=== PATIENT | female | born 1965 | race Caucasian/White ===

== ENCOUNTER 2016-07-03 15:32 | Emergency (ER) | payer OTHER ==
[~2016-07-03] VITALS: Ht 152.4 cm; Wt 73.5 kg
[~2016-07-03 15:32] MED LIST: NO MEDS; TRAM50TA2 PO
[2016-07-03 16:11] VITALS: Ht 152.4 cm; Wt 73.5 kg
[2016-07-03] MEDS ORDERED: LORAZEPAM 0.5 MG TAB PO ONE (19:00)
--- NOTE | 2016-07-03 19:34 | RADRPT ---
PROCEDURE: XR left Shoulder. CLINICAL INDICATION: Left shoulder pain. TECHNIQUE: Two views of the left shoulder are available for review. COMPARISON: None available FINDINGS: No evidence for fracture, subluxation or dislocation. No evidence for bone destructive or erosive c hanges. The bones are well mineralized. There is calcification either within or immediately adjacen t to the AC joint. Findings are likely old post-traumatic change. The acromion is curved which can be seen with impingement and there is mild greater tuberosity enthesopathy. IMPRESSION: 1. There is a curved acromion and there is mild greater tuberosity enthesopathy. Findings could re present impingement. 2. No evidence for fracture. RPTAT: XX .Brandt Luciano MD, MD Date Time Electronically viewed and signed by .Brandt Luciano MD, on 07/03/2016 19:34 .T/
--- NOTE | 2016-07-03 19:46 | RADRPT ---
PROCEDURE: XR Chest. CLINICAL INDICATION: chest pain TECHNIQUE: Single frontal chest x-ray. COMPARISON: 02/19/2012 FINDINGS: There is minimal prominence of the lung interstitium likely minimal chronic changes. No focal opacif ication is seen. The cardiomediastinal silhouette is unremarkable. The osseous structures are unre markable. IMPRESSION: 1. There is no acute cardiopulmonary process. RPTAT: HJES .Juan Miguel Mcclure MD, MD Date Time Electronically viewed and signed by .Juan Miguel Mcclure MD, MD on 07/03/2016 19:46 .S/
[2016-07-03] MEDS ORDERED: IBUP-1542 PO (19:55)
--- NOTE | 2016-07-03 19:59 | ERD ---
ER Documentation Chief Complaint Date/Time DATE: 07/03/16 TIME: 19:56 Chief Complaint RIGHT UPPER ARM PAIN HPI This is a 51-year-old female presents to the ER with left arm pain that started yesterday. 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 Patient denies any trauma to the arm. Patient states that the pain radiates to her chest and she feels palpitations. Patient also complaining of chest pain. She denies any shortness of breath. She feels nauseous. She denies vomiting or diarrhea. Patient's chest pain is nonexertional. ROS 12 point review of systems was done, all negative except per HPI. Medications Home Meds Active Scripts Ibuprofen* (Ibuprofen*) 600 Mg Tablet, 600 MG PO Q6 for 3 Days, TAB Prov:JO ANN CANALES 07/03/16 Tramadol HCl (Tramadol HCl) 50 Mg Tablet, 50 MG PO Q4 Y for PAIN, #20 TAB Prov:AGATHA CARREON PA-C 05/21/15 Reported Medications [No Meds] No Conflict Check 09/11/10 Allergies Allergies: Coded Allergies: No Known Allergies (Verified Allergy, Mild, 12/20/12) PMhx/Soc History of Surgery: No Anesthesia Reaction: No Hx Neurological Disorder: No Hx Respiratory Disorders: No Hx Cardiac Disorders: No Hx Psychiatric Problems: No Hx Miscellaneous Medical Probl: Yes (UTERINE FIBROIDS) Hx Alcohol Use: No Hx Substance Use: No Hx Tobacco Use: No Physical Exam Vitals Vital Signs Date Time Temp Pulse Resp B/P Pulse Ox O2 Delivery O2 Flow Rate FiO2 07/03/16 16:11 98.5 109 18 159/72 98 Physical Exam GENERAL: The patient is well developed and appropriate for usual state of health , in no apparent distress. HEENT: Atraumatic. Conjunctivae are pink. Pupils equal, round, and reactive to light. Extraocular muscles are grossly intact. Bilateral tympanic membranes are clear with no evidence of erythema, effusion or dulling of the light reflex. The oropharynx is clear with no erythema or exudates. NECK: C-spine is soft and supple. There is no cervical lymphadenopathy. CHEST: Clear to auscultation bilaterally. There are no rales, wheezes or rhonchi. Reproducible chest pain HEART: Regular rate and rhythm. No murmurs, clicks, rubs or gallops. ABDOMEN: Soft, nontender and nondistended. Good bowel sounds. No rebound or guarding. No gross peritonitis. No gross organomegaly or masses. No Fernandez sign or McBurney point tenderness. No pulsatile masses. BACK: No midline or flank tenderness. EXTREMITIES: Left shoulder: Patient is tender to palpation along the midhumerus. Patient is unable to fully extend shoulder secondary to pain. unAble to perform special exam secondary to pain. Neurovascularly intact no elbow pain. NEURO: Alert and oriented. Cranial nerves II through XII are intact. Motor strength in all 4 extremities with 5/5 strength. Sensation grossly intact. Normal speech and gait. SKIN: There is no apparent rash or petechia. The skin is warm and dry. Results 24 hrs Current Medications Medications (Trade) Dose Ordered Sig/Tonia Route PRN Reason Start Time Stop Time Status Last Admin Dose Admin Lorazepam (Ativan) 0.5 mg ONCE ONCE PO 07/03/16 19:00 07/03/16 19:01 DC 07/03/16 19:04 Procedures/MDM Differential diagnosis includes but is not limited to; STEMI, dissection, pneumothorax, PE, esophageal rupture, tamponade, pneumonia, pericarditis, GERD, musculoskeletal, endocarditis, anxiety., Shoulder sprain, shoulder fracture, impingement syndrome, rotator cuff tear. EKG was taken and read by Dr. Franz [address] elevation or T-wave inversion. At this time do not believe that patient's chest pain is cardiac in etiology. Patient was contacted impingement syndrome on shoulder x-ray. Patient's chest pain was reproducible on physical exam and is consistent with musculoskeletal injury. Patient is neurovascularly intact, she'll be sent home with ibuprofen. She is to follow-up with her primary care doctor within 1-2 days return to ER sooner symptoms worsen. My medical decision making sure with patient hasn't agrees with plan. Departure Diagnosis: Primary Impression: Impingement syndrome of left shoulder Condition: Stable Patient Instructions: Shoulder Impingement Syndrome Additional Instructions: Llame al doctor MAANA y julio irene SENDY PARA DENTRO DE 1-2 NICK.Dgale a la secretaria que nosotros le instruimos hacer esta sendy.Avise o llame si howell condicin se empeora antes de la sendy. Regresa aqui si peor o no mejor. JO ANN CANALES Jul 03, 2016 19:59
[2016-07-03 20:01] VITALS: BP 142/78; PULSE 79; RESP 18; TEMP 98.7
== END 2016-07-03 20:02 | disposition home or self-care (01) ==
LOC: FTE 15:32
DX: M75.42 Impingement syndrome of left shoulder (principal)
CPT/HCPCS: 71010; 73030; 93005; Z7610

== ENCOUNTER 2016-11-22 14:02 | Emergency (ER) | payer OTHER ==
[~2016-11-22] VITALS: Ht 149.9 cm; Wt 68.5 kg
[~2016-11-22 14:02] MED LIST changes: +IBUP-1542 PO
[2016-11-22 14:32] VITALS: Ht 149.9 cm; Wt 68.5 kg
[2016-11-22] MEDS ORDERED: NPH10OT RIGHT EAR (14:42)
[2016-11-22] MEDS ORDERED: AMOX1TAB9 PO (14:42)
--- NOTE | 2016-11-22 14:59 | EN ---
Date/Time of Note Date/Time of Note DATE: 11/22/16 TIME: 14:57 ER Progress Note This is a 51-year-old female who initially was evaluated RME by myself for right ear pain, however after I have evaluated and to the patient she stated that she has nausea, vomiting and diarrhea. Patient will be sent to ER to for further evaluation and management GENERAL: WD/WN, in no apparent distress, non-toxic appearing HENT: NC/AT, left tympanic membrane clear, right tympanic membrane had pinna and tragus tenderness with cerumen and fluid in the ear canal EYES: Conjunctiva normal NECK: Supple. No meningeal signs PULM: Clear to auscultation bilaterally. Normal labored breathing CV: Regular rate and rhythm, no murmurs GI: Soft, non tender, non distended. Normal bowel sounds BACK: No masses EXT: No clubbing, cyanosis, or edema. NEURO: Awake and Alert SKIN: No petechiae or rashes PSYCH: Normal mood BOBBY ARELLANO PA-C Nov 22, 2016 14:59
[2016-11-22] MEDS ORDERED: AMO500 PO (20:00)
--- NOTE | 2016-11-23 19:00 | ERD ---
ER Documentation Chief Complaint Date/Time DATE: 11/23/16 TIME: 18:57 Chief Complaint HAS EAR PAIN ALSO FEELS LIKE ITS AFFECTING HER EQUILIBRIUM HPI This patient is a 51-year-old female presenting to the emergency department with complaints of right ear pain and nausea intermittently for the past 3 days. She states the symptoms have now become constant. She had one episode of vomiting this morning which is nonbilious and nonbloody. She denies fevers, chills, diarrhea, constipation, urinary symptoms, or other symptoms. ROS All systems reviewed and are negative except as per history of present illness. Medications Home Meds Active Scripts Amoxicillin* (Amoxicillin*) 500 Mg Cap, 500 MG PO TID for 7 Days, #21 CAP Prov:IRVING SEXTON PA-C 11/22/16 Amoxicillin/Potassium Clav (Amox-Clav 500-125 mg Tablet) 500-125 mg Tab, 1 TAB PO BID for 10 Days, TAB Prov:BOBBY ARELLANO PA-C 11/22/16 Ibuprofen* (Ibuprofen*) 600 Mg Tablet, 600 MG PO Q6 for 3 Days, TAB Prov:JO ANN CANALES 07/03/16 Tramadol HCl (Tramadol HCl) 50 Mg Tablet, 50 MG PO Q4 Y for PAIN, #20 TAB Prov:AGATHA CARREON PA-C 05/21/15 Reported Medications [No Meds] No Conflict Check 09/11/10 Allergies Allergies: Coded Allergies: No Known Allergies (Verified Allergy, Mild, 12/20/12) PMhx/Soc History of Surgery: No Anesthesia Reaction: No Hx Neurological Disorder: No Hx Respiratory Disorders: No Hx Cardiac Disorders: No Hx Psychiatric Problems: No Hx Miscellaneous Medical Probl: Yes (UTERINE FIBROIDS) Hx Alcohol Use: No Hx Substance Use: No Hx Tobacco Use: No FmHx Noncontributory for chief complaint Physical Exam Vitals Vital Signs Date Time Temp Pulse Resp B/P Pulse Ox O2 Delivery O2 Flow Rate FiO2 11/22/16 14:32 98.4 109 18 129/62 97 Physical Exam Const: Nontoxic, well-appearing female in no acute distress. Head: Atraumatic Eyes: Normal Conjunctiva ENT: Normal External Ears, Nose and Mouth. There is some tenderness of the tragus on the right side. There is fluid noted in the ear canal. There is a significant amount of cerumen noted in the right ear canal as well. Neck: Full range of motion..~ No meningismus. Resp: Clear to auscultation bilaterally Cardio: Regular rate and rhythm, no murmurs Abd: Soft, non tender, non distended. Normal bowel sounds Skin: No petechiae or rashes Back: No midline or flank tenderness Ext: No cyanosis, or edema Neur: Awake and alert Psych: Normal Mood and Affect Procedures/MDM 51-year-old female presented to the emergency department with complaints of right ear pain. On physical examination there is a significant amount of earwax noted in the right ear but no impaction. I ordered a ear lavage for the patient, however she declined and stated she wanted a prescription instead. The patient has had one episode of nausea and vomiting earlier today but I believe this could just be secondary to a viral process because it was short- lived and the patient only had one episode. I advised her to take over-the- counter medication of her vomiting worsens, and to return to the emergency department immediately should she have any new or worsening symptoms. She understands the discharge plan and diagnosis. Her primary impression is otitis externa. She stable for outpatient management with a prescription for amoxicillin. Close follow-up with the primary care physician advised. I low suspicion for tympanic membrane rupture, peritonsillar abscess, retropharyngeal abscess, mastoiditis, septicemia, or other emergent conditions. Strict ER return precautions discussed and the patient demonstrates good understanding. Departure Diagnosis: Primary Impression: Otitis externa Condition: Stable Patient Instructions: External Ear Infection (Adult) Referrals: [facility] Usted se min hecho un examen mdico de control que le indica que no est en irene condicin que requiera tratamiento urgente en el Departamento de Emergencia. Un estudio ms profundo y el tratamiento de howell condicin pueden esperar sin ningn riesgo hasta que usted sea atendida/o en el consultorio de howell mdico o irene cl yash. Es responsabilidad suya arreglar irene monae para el seguimiento del jamal. MANEJO DE CONDICIONES NO URGENTES EN EL FUTURO 1) Si usted tiene un mdico de atencin primaria: Usted debera llamar a howell mdico de atencin primaria antes de venir al departamento de emergencia. Despus de las horas de consultorio, howell doctor o howell asociado/a est disponible por telfono. El mdico o enfermero de [place] en el servicio telefnico puede asesorarle por yohan medio para atender el problema, o jamal contrario se puede programar irene monae. 2) Si usted no tiene un mdico de atencin primaria: Llame al mdico o clnica de referencia que aparece abajo bebeto las horas de consultorio para hacer irene monae para que le vean. CLINICAS: [facility] [phone] [facility] [facility] [phone] [facility] [facility] [phone] [facility]. [facility] [phone] [facility]. [facility] [phone] [address] [facility] [phone] [address] Additional Instructions: Visite a howell mdico maana para un EXAMEN.Regrese a estas instalaciones si no se mejora brock esperbamos o brock le dijimos. Volente toda la medicina yannick y brock se le indic. Regrese a estas instalaciones si no se mejora brock esperbamos o brock le dijimos. IRVING SEXTON PA-C Nov 23, 2016 19:00
== END 2016-11-22 20:03 | disposition home or self-care (01) ==
LOC: E/R 14:02 → FTE 20:03
DX: H60.91 Unspecified otitis externa, right ear (principal)
CPT/HCPCS: 99283

== ENCOUNTER 2017-04-27 09:51 | Emergency (ER) | payer OTHER ==
[~2017-04-27] VITALS: Wt 68.9 kg
[~2017-04-27 09:51] MED LIST changes: +AMOX1TAB9 PO; +AMOX500C2 PO
[2017-04-27] MEDS ORDERED: KETOROLAC 30 MG INJ IM STA (10:42)
[2017-04-27 11:43] LABS: ADD UMIC YES; UR ASCORBIC ACID NEGATIVE (NEGATIVE); UR BACTERIA MODERATE /HPF (NONE SEEN); UR BILIRUBIN (Dip) NEGATIVE (NEGATIVE); UR BLOOD (Dip) 1+ mg/dL (NEGATIVE); UR CLARITY CLOUDY (CLEAR); UR COLOR YELLOW (YELLOW); UR GLUCOSE (Dip) NEGATIVE (NEGATIVE); UR KETONES (Dip) NEGATIVE (NEGATIVE); UR LEUKOCYTE ESTERASE (Dip) 3+ Leu/ul (NEGATIVE); UR MUCUS FEW /HPF (NONE SEEN); UR NITRITE (Dip) POSITIVE (NEGATIVE); UR NONSQUAMOUS EPITHELIAL CELL 2 /HPF (NONE SEEN); UR RBC 29 /HPF (0-5); UR SPECIFIC GRAVITY (Dip) 1.027 (1.003-1.030); UR SQUAMOUS EPITHELIAL CELL MODERATE /HPF (FEW); UR TOTAL PROTEIN (Dip) 1+ mg/dl (NEGATIVE); UR UROBILINOGEN (Dip) NEGATIVE (NEGATIVE)
[2017-04-27] MEDS ORDERED: CEPHALEXIN 500 MG CAP PO ONE (12:00)
[2017-04-27] MEDS ORDERED: PHENAZOPYRIDINE 100 MG TAB PO ONE (12:00)
[2017-04-27] MEDS ORDERED: ACET500C5 PO (12:11)
[2017-04-27] MEDS ORDERED: CEPH-443 PO (12:11)
[2017-04-27] MEDS ORDERED: PHEN-538 PO (12:11)
--- NOTE | 2017-04-27 12:16 | ERD ---
ER Documentation Chief Complaint Chief Complaint PAIN/BURNING WITH URINATION, ARM PAIN HPI 52-year-old female presents with dysuria for last 2 days. She denies fevers, vomiting, flank pain, abdominal pain. Patient has additional complaint of right shoulder pain. She has a history of rheumatoid arthritis. She takes tramadol, prednisone and methotrexate. ROS All systems reviewed and are negative except as per history of present illness. Medications Home Meds Active Scripts Phenazopyridine Hcl* (Pyridium*) 200 Mg Tab, 200 MG PO TID Y for URINARY PAIN, # 6 TAB Prov:DAILY COHEN MD 04/27/17 Cephalexin* (Keflex*) 500 Mg Capsule, 500 MG PO QID for 5 Days, CAP Prov:DAILY COHEN MD 04/27/17 Acetaminophen* (Tylophen*) 500 Mg Capsule, 1 CAP PO Q6H Y for PAIN AND OR ELEVATED TEMP, #20 CAP Prov:DAILY COHEN MD 04/27/17 Amoxicillin* (Amoxicillin*) 500 Mg Cap, 500 MG PO TID for 7 Days, #21 CAP Prov:IRVING SEXTON PA-C 11/22/16 Amoxicillin/Potassium Clav (Amox-Clav 500-125 mg Tablet) 500-125 mg Tab, 1 TAB PO BID for 10 Days, TAB Prov:BOBBY ARELLANO PA-C 11/22/16 Ibuprofen* (Ibuprofen*) 600 Mg Tablet, 600 MG PO Q6 for 3 Days, TAB Prov:JO ANN CANALES 07/03/16 Tramadol HCl (Tramadol HCl) 50 Mg Tablet, 50 MG PO Q4 Y for PAIN, #20 TAB Prov:AGATHA CARREON PA-C 05/21/15 Reported Medications [No Meds] No Conflict Check 09/11/10 Allergies Allergies: Coded Allergies: No Known Allergies (Verified Allergy, Mild, 04/27/17) PMhx/Soc History of Surgery: No Anesthesia Reaction: No Hx Neurological Disorder: No Hx Respiratory Disorders: No Hx Cardiac Disorders: No Hx Psychiatric Problems: No Hx Miscellaneous Medical Probl: Yes (UTERINE FIBROIDS) Hx Alcohol Use: No Hx Substance Use: No Hx Tobacco Use: No Smoking Status: Never smoker Physical Exam Vitals Vital Signs Date Time Temp Pulse Resp B/P Pulse Ox O2 Delivery O2 Flow Rate FiO2 04/27/17 09:54 98.3 94 18 165/75 98 Physical Exam Const: [] Alert, [id number]. Head: Atraumatic Eyes: Normal Conjunctiva ENT: Normal External Ears, Nose and Mouth. Neck: Full range of motion..~ No meningismus. Resp: Clear to auscultation bilaterally Cardio: Regular rate and rhythm, no murmurs Abd: Soft, non tender, non distended. Normal bowel sounds Skin: No petechiae or rashes Back: No midline or flank tenderness Ext: No cyanosis, or edema. Tenderness in the right shoulder capsule without deformities, warmth, erythema, effusion. There is limited range of motion to abduction and flexion. Neur: Awake and alert Psych: Normal Mood and Affect Results 24 hrs Laboratory Tests Test 04/27/17 10:54 Urine Color YELLOW Urine Clarity CLOUDY Urine pH 5.0 Urine Specific [place] 1.027 Urine Ketones NEGATIVEmg/dL Urine Nitrite POSITIVEmg/dL Urine Bilirubin NEGATIVEmg/dL Urine Urobilinogen NEGATIVEmg/dL Urine Leukocyte Esterase 3+Stevie/ul Urine Microscopic RBC 29/HPF Urine Microscopic WBC > 182/HPF Urine Squamous Epithelial Cells MODERATE/HPF Urine Bacteria MODERATE/HPF Urine Mucus FEW/HPF Urine Hemoglobin 1+mg/dL Urine Glucose NEGATIVEmg/dL Urine Total Protein 1+mg/dl Current Medications Medications (Trade) Dose Ordered Sig/Tonia Route PRN Reason Start Time Stop Time Status Last Admin Dose Admin Ketorolac Tromethamine (Toradol) 30 mg ONCE STAT IM 04/27/17 10:42 04/27/17 10:44 DC 04/27/17 10:59 Cephalexin (Keflex) 500 mg ONCE ONCE PO 04/27/17 12:00 04/27/17 12:01 DC 04/27/17 12:07 Phenazopyridine HCl (Pyridium) 200 mg ONCE ONCE PO 04/27/17 12:00 04/27/17 12:01 DC 04/27/17 12:07 Procedures/MDM Shows positive symptoms of infection. Patient given Keflex 500 mg by mouth. In 200 mg by mouth. Signs of chronic right shoulder pain with history of rheumatoid arthritis. Is nontraumatic. No evidence to suggest septic arthritis, or acute cardiopulmonary etiology. She was given Toradol 30 mg IM and will treated with Tylenol and primary care follow-up and orthopedic referral for this. Patient will be treated with Keflex for UTI and primary care follow-up and return precautions. There is no current evidence of acute abdomen, sepsis, additional complications related to patient complaints. The patient was stable with no new complaints during the ER course. Clinically, there is no current evidence to suggest meningitis, sepsis, acute abdomen, pneumonia, acute coronary syndrome , pulmonary embolism, or any other emergent condition appearing to require further evaluation or hospitalization. The patient should certainly return for any new or worsening symptoms per the aftercare instructions. They should otherwise follow-up with her primary care doctor for reevaluation this week. Departure Diagnosis: Primary Impression: UTI (urinary tract infection) Urinary tract infection type: acute cystitis Hematuria presence: without hematuria Qualified Code: N30.00 - Acute cystitis without hematuria Condition: Stable Patient Instructions: Understanding Urinary Tract Infections (UTIs), Shoulder Pain (Uncertain Cause) Referrals: JUDI LYN MD,IN GIL Additional Instructions: Va al howell doctor/ specialista para mas evaluacon en el proximo semana. posiblemente necesita autorizado de howell doctor primario para specialista. Regresa para fiebre, o mas o nueva simptomas. Cheque otro vez con howell doctor primario en el proximo abbasi or regresa para mas o nueva simptomas. DAILY COHEN MD Apr 27, 2017 12:16
== END 2017-04-27 12:21 | disposition home or self-care (01) ==
LOC: FTE 09:51
DX: N30.00 Acute cystitis without hematuria (principal)
CPT/HCPCS: 81001; 96372; J1885; Z7502; Z7610

== ENCOUNTER 2017-10-02 11:22 | Emergency (ER) | END 2017-10-02 13:39 | disposition home or self-care (01) ==

== ENCOUNTER 2018-12-03 06:49 | Day surgery (SDC) | payer OTHER ==
[~2018-12-03] VITALS: Ht 152.4 cm; Wt 69.0 kg
[~2018-12-03 06:49] MED LIST changes: +ACET500C5 PO; +CEPH-443 PO; +IBUP-1561 PO; +PHEN-538 PO
[2018-12-03 07:54] VITALS: BP 132/78; PULSE 83; RESP 17
[2018-12-03] MEDS ORDERED: PREDNISONE (07:54)
[2018-12-03] MEDS ORDERED: METHOTREXATE (07:54)
[2018-12-03 07:57] VITALS: Ht 152.4 cm; Wt 69.0 kg
--- NOTE | 2018-12-03 08:19 | PREAC ---
Date/Time of Note Date/Time of Note DATE: 12/03/18 TIME: 08:17 Anesthesia Eval and Record Evaluation Time Pre-Procedure Interview DATE: 12/03/18 TIME: 08:17 Age 53 Sex female NPO: 8 hrs Preoperative diagnosis Dyspepsia, screening Planned procedure EGD, Colonoscopy Past Medical History Past Medical History: Includes Musculoskeletal: Osteoarthritis Surgery & Anesthesia Issues No known issue Meds Anticoagulation: No Beta Gonzalez within 24 hr: No Reason Beta Gonzalez not given: Pt. not on B-Gonzalez Reported Medications [Prednisone] No Conflict Check 12/03/18 [Methotrexate] No Conflict Check 12/03/18 Discontinued Reported Medications [No Meds] No Conflict Check 09/11/10 Discontinued Scripts Ibuprofen* (Motrin*) 400 Mg Tab, 400 MG PO Q6, #30 TAB Prov:RENE MILES PA-C 10/02/17 Phenazopyridine Hcl* (Pyridium*) 200 Mg Tab, 200 MG PO TID PRN for URINARY PAIN, #6 TAB Prov:DAILY COHEN MD 04/27/17 Cephalexin* (Keflex*) 500 Mg Capsule, 500 MG PO QID for 5 Days, CAP Prov:DAILY COHEN MD 04/27/17 Acetaminophen* (Tylophen*) 500 Mg Capsule, 1 CAP PO Q6H PRN for PAIN AND OR ELEVATED TEMP, #20 CAP Prov:DAILY COHEN MD 04/27/17 Amoxicillin* (Amoxicillin*) 500 Mg Cap, 500 MG PO TID for 7 Days, #21 CAP Prov:IRVING SEXTON PA-C 11/22/16 Amoxicillin/Potassium Clav (Amox-Clav 500-125 mg Tablet) 500-125 mg Tab, 1 TAB PO BID for 10 Days, TAB Prov:BOBBY ARELLANO PA-C 11/22/16 Ibuprofen* (Ibuprofen*) 600 Mg Tablet, 600 MG PO Q6 for 3 Days, TAB Prov:JO ANN CANALES 07/03/16 Tramadol HCl (Tramadol HCl) 50 Mg Tablet, 50 MG PO Q4 PRN for PAIN, #20 TAB Prov:AGATHA CARREON PA-C 05/21/15 Meds reviewed: Yes Allergies Coded Allergies: No Known Allergies (Verified Allergy, Mild, 04/27/17) Allergies Reviewed: Yes Labs/Studies Labs Reviewed: Reviewed by anesthesiologist test: Negative Studies: ECG (n/a), CXR (n/a) Pre-procedure Exam Last vitals Vital Signs Date Temp Pulse Resp B/P (MAP) Pulse Ox O2 O2 Flow FiO2 Time Delivery Rate 12/03/18 83 17 132/78 96 Room Air 07:54 (96) Airway: Adequate mouth opening, Adequate thyromental dist Mallampati: Mallampati II Teeth: Normal Lung: Normal Heart: Normal ASA Physical Status ASA physical status: 2 Emergency: None Planned Anesthetic General/MAC: MAC Planned Pain Management Parenteral pain med Pre-operative Attestations Prior to commencing anesthesia and surgery, the patient was re-evaluated, there was verification of: *The patient's identity *The results of appropriate recent lab work and preoperative vital signs *The above evaluation not changing prior to induction *Anesthetic plan, risk benefits, alternative and complications discussed with patient/family; questions answered; patient/family understands, accepts and wishes to proceed. LUIZA PAINTER MD Dec 03, 2018 08:19
[2018-12-03] MEDS ORDERED: PROPOFOL 60 ML ONE (08:22)
--- NOTE | 2018-12-03 08:51 | PAC ---
Date/Time of Note Date/Time of Note DATE: 12/03/18 TIME: 08:50 Post-Anesthesia Notes Post-Anesthesia Note Last documented vital signs Vital Signs Date Temp Pulse Resp B/P (MAP) Pulse Ox O2 O2 Flow FiO2 Time Delivery Rate 12/03/18 98.0 83 17 132/78 96 Room Air 09:00 (96) Activity: WNL Respiratory function: WNL Cardiovascular function: WNL Mental status: Baseline Pain reasonably controlled: Yes Hydration appropriate: Yes Nausea/Vomiting absent: Yes LUZIA PAINTER MD Dec 03, 2018 08:50
[2018-12-03 09:39] VITALS: BP 131/63; RESP 26
== END 2018-12-03 12:47 | disposition home or self-care (01) ==
LOC: GIL 06:49
PROVIDERS: ATTEND Internal Medicine Gastroenterology
DX: Z12.11 Encounter for screening for malignant neoplasm of colon (principal); K64.8 Other hemorrhoids; K64.4 Residual hemorrhoidal skin tags; K29.50 Unspecified chronic gastritis without bleeding; K20.8 Other esophagitis
CPT/HCPCS: 43239; 45378; 84703; 88305; 88312; Z7610